=== PATIENT | female | born 1950 | race Caucasian/White ===

== ENCOUNTER 2018-04-28 07:15 | Emergency (ER) | payer MEDICARE, OTHER ==
[~2018-04-28] VITALS: Ht 154.9 cm; Wt 61.7 kg
[2018-04-28] MEDS ORDERED: ATORVASTATIN CA10 MG PO (07:40)
[2018-04-28] MEDS ORDERED: CITALOPRAM HBR20 MG PO (07:40)
[2018-04-28] MEDS ORDERED: QUETIAPINE FUMA25 MG PO (07:40)
[2018-04-28] MEDS ORDERED: HYDROXYZINE HCL10 MG PO (07:40)
[2018-04-28] MEDS ORDERED: BENZTROPINE MESY2 MG PO (07:40)
[2018-04-28 07:56] LABS: BASOPHILS # (AUTO) 0.1 (0.0-0.1); BASOPHILS % 0.8 % (0.0-1.0); EOSINOPHILS # (AUTO) 0.1 (0.0-0.4); EOSINOPHILS % 1.1 % (0.0-6.0); HEMATOCRIT 43.7 % (34.2-44.1); HEMOGLOBIN 14.5 g/dL (12.0-16.0); LYMPHOCYTES # (AUTO) 3.1 (1.0-3.2); LYMPHOCYTES % 27.7 % (18.0-39.1); MEAN CORPUSCULAR HGB CONC 33.2 g/dL (31-35); MEAN CORPUSCULAR VOLUME 90.5 fL (81-99); MONOCYTES # (AUTO) 0.9 (0.2-0.8); MONOCYTES % 7.8 % (4.4-11.3); NEUTROPHILS # (AUTO) 6.9 (2.1-6.9); NEUTROPHILS % 62.3 % (38.7-80.0); PLATELET COUNT 397 x10e3/uL (140-360); RED BLOOD COUNT 4.83 x10e6/uL (3.6-5.1); RED CELL DISTRIBUTION WIDTH 12.8 % (11.7-14.4)
[2018-04-28] MEDS ORDERED: ASPIRIN 81 MG CHEW TAB PO ONE (08:00)
[2018-04-28 08:08] LABS: ALANINE AMINOTRANSFERASE 19 IU/L (0-55); ALBUMIN/GLOBULIN RATIO 1.3 (0.8-2.0); ALKALINE PHOSPHATASE 130 IU/L (40-150); ANION GAP 17.3 mmol/L (8-16); BLOOD UREA NITROGEN 9 mg/dL (7-26); BUN/CREATININE RATIO 11 (6-25); CALCIUM 10.1 mg/dL (8.4-10.2); CARBON DIOXIDE 19 mmol/L (22-29); CHLORIDE 102 mmol/L (98-107); CHOLESTEROL 184 MD/DL (0-199); CREATININE, SERUM 0.82 mg/dL (0.57-1.11); EST GLOMERULAR FILTRATION RATE > 60 ML/MIN (60-); GLUCOSE 94 mg/dL (74-118); HDL CHOLESTEROL 61 MG/DL (40-60); LDL CHOLESTEROL 100 MG/DL (60-130); POTASSIUM 3.3 mmol/L (3.5-5.1); SODIUM 135 mmol/L (136-145); TRIGLYCERIDES 117 MG/DL (0-149)
--- NOTE | 2018-04-28 08:15 | Diagnostic Imaging Report ---
PROCEDURE: X-RAY CHEST, TWO VIEWS COMPARISON: None. INDICATIONS: CHEST PAIN, PRESSURE FINDINGS: The lungs are well-inflated. Minimal linear opacity in the left lung base compatible with fibrosis or subsegmental atelectasis. No consolidation, pleural effusion, or pneumothorax. Tortuosity of the thoracic aorta with otherwise normal heart size. No pulmonary edema. No acute osseous abnormality. Posttraumatic deformity of the proximal right humerus with associated intramedullary huey partially visualized. Surgical clips project over the right upper quadrant of the abdomen compatible with prior cholecystectomy. CONCLUSION: Subsegmental atelectasis or linear scar in the left lung base. Otherwise no acute cardiopulmonary abnormality. Dictated by: Adan Laguerre M.D. on 04/28/2018 at 8:23 Electronically approved by: Adan Laguerre M.D. on 04/28/2018 at 8:23
[2018-04-28] MEDS ORDERED: KCL 20MEQ/.9 SOD CHL 1,000 ML IV ONE (08:45)
[2018-04-28 09:00] VITALS: BP 122/84
== END 2018-04-28 09:33 | disposition home or self-care (01) ==
LOC: ER 07:15
DX: R07.89 Other chest pain (principal); E86.0 Dehydration; E87.6 Hypokalemia; F17.210 Nicotine dependence, cigarettes, uncomplicated
CPT/HCPCS: 36415; 71046; 80053; 80061; 83880; 84484; 85025; 93005; 99284

== ENCOUNTER 2018-07-30 21:11 | Emergency (ER) | payer OTHER ==
[~2018-07-30] VITALS: Ht 154.9 cm; Wt 61.7 kg
[~2018-07-30 21:11] MED LIST: ATORVASTATIN CA10 MG PO; BENZTROPINE MESY2 MG PO; CITALOPRAM HBR20 MG PO; HYDROXYZINE HCL10 MG PO; QUETIAPINE FUMA25 MG PO
--- OUTSIDE RECORDS SUMMARY | 2018-07-30 21:14 | XMS REPORT ---
Author [facility] Phone Unavailable Care Team Providers Care Pizza Chef Name Role Phone Tracy RIVERA Unavailable Unavailable Problems This patient has no known problems. Allergies, Adverse Reactions, Alerts This patient has no known allergies or adverse reactions. Medications This patient has no known medications. Results Test Description Test Time Test Comments Text Results Atomic Results Result Comments CHEST 2 VIEWS 2018-04-28 08:24:00 [facility] [address] [address] Patient Name: RAFAEL MITTAL MR #: [id number] : 1950 Age/Sex: 68/F Req #: [id number] [facility] Physician: Ordered by: JIMBO RIVERA MD Report #: [id number] Location: ER Room/Bed: Procedure: [id number] DX/CHEST 2 VIEWS Exam Date: 04/28/18 Exam Time: 0750 REPORT STATUS: Signed PROCEDURE: X-RAY CHEST, TWO VIEWS COMPARISON: None. INDIC ATIONS: CHEST PAIN, PRESSURE FINDINGS: The lungs are well- inflated. Minimal linear opacity in the left lung base compatible with fibrosis or subsegmental atelectasis. No consolidation, pleural effusion, or pneumothorax. Tortuosity of the thoracic aorta with otherwise normal heart size. No pulmonary edema. No acute osseous abnormality. Posttraumatic deformity of the proximal right humerus with associated intramedullary huey partially visualized. Surgical clips project over the right upper quadrant of the abdomen compatible with prior cholecystectomy. CONCLUSION: Subsegmental atelectasis or linear scar in the left lung base. Otherwise no acute cardiopulmonary abnormality. Dictated by: Cailin Mondragon M.D. on 04/28/2018 at 8:23 Electronically approved by: Cailin Mondragon M.D. on 04/28/2018 at 8:23 Dictated By: CAILIN MONDRAGON MD 3 Transcribed By: MARTIN on 04/28/18823 COPY TO: JIMBO RIVERA MD
== END 2018-07-31 00:17 | disposition left against medical advice (07) ==
LOC: ER 21:11
DX: R20.2 Paresthesia of skin (principal)

== ENCOUNTER → 2018-12-13 | Outpatient (CLI) | payer MEDICARE ==
--- NOTE | 2018-12-14 10:46 | Diagnostic Imaging Report ---
EXAM: Bone mineral density study 12/13/2018 12:27 PM INDICATION: ^OSTEOPOROSIS COMPARISON: Previous DEXA none. Baseline DEXA none FINDINGS: Evaluation of the left hip and lumbar spine was performed. The study is technically adequate. The patient's fracture risk is compared to an age-matched control. The patient denies prior surgery/fracture of the spine, hips or forearm. LEFT HIP * Femoral neck bone mineral density: 0.559 gm/cm2, T-score is -2.6, Z-score is -0.9. * Total bone mineral density: 0.670 gm/cm2, T-score is -2.2, Z-score is -0.8. LUMBAR SPINE * Total bone mineral density: 0.922 gm/cm2, T-score is -1.1, Z-score is 0.9. IMPRESSION: 1. LEFT HIP: Bone mineralization by WHO Classification is osteoporosis, the fracture risk is high. 2. LUMBAR SPINE: Bone mineralization by WHO Classification is osteopenia, the fracture risk is moderate. <T score: NL = -1 or higher Osteopenia = -1 to -2.5 Osteoporosis = -2.5 or lower Z score: < - 2 concerning for path> Signed by: Dr. Iftikhar Anguiano M.D. on 12/14/2018 10:43 AM
== END ==
LOC: MAMMO 12:16
PROVIDERS: ATTEND Internal Medicine
DX: Z12.31 Encounter for screening mammogram for malignant neoplasm of breast (principal); M81.0 Age-related osteoporosis without current pathological fracture
CPT/HCPCS: 77067; 77080

== ENCOUNTER → 2021-11-08 | Outpatient (CLI) | payer MEDICARE ==
[~2021-11-08] MED LIST changes: +IOPAMIDOL 370 MG/ML 100 ML INFUS..BTL INJ ONE
[2021-11-08 11:57] LABS: CREATININE, SERUM 0.7 mg/dL (0.57-1.11)
== END ==
LOC: MAMMO 10:04
PROVIDERS: ATTEND Internal Medicine
DX: Z12.31 Encounter for screening mammogram for malignant neoplasm of breast (principal); M81.8 Other osteoporosis without current pathological fracture; R19.09 Other intra-abdominal and pelvic swelling, mass and lump; M46.1 Sacroiliitis, not elsewhere classified
CPT/HCPCS: 36415; 72170; 74160; 77067; 77080; 82565; 84520; Q9967